=== PATIENT | female | born 1955 | race Caucasian/White ===

== ENCOUNTER 2018-10-17 16:32 | Emergency (ER) | payer MEDICARE, OTHER ==
[~2018-10-17] VITALS: Ht 152.4 cm; Wt 67.2 kg
[~2018-10-17 16:32] MED LIST: CEPH-443 PO; CIPR500T4 PO; HYDR-3980 PO; HYDR-4011 PO; IBUP-1542 PO; TAMS-14 PO
[2018-10-17 16:35] VITALS: Ht 152.4 cm; Wt 67.2 kg
[2018-10-17] MEDS ORDERED: HYDROCODONE/APAP (5/325) TAB PO ONE (17:00)
[2018-10-17] MEDS ORDERED: SOD CHLORIDE 0.9% 1,000 ML IV STA (18:10)
[2018-10-17] MEDS ORDERED: CEFTRIAXONE 1 GM/50 ML (PMX) 50 ML IVPB ONE (18:30)
[2018-10-17 18:49] VITALS: BP 138/80; PULSE 65; RESP 19
== END 2018-10-17 19:33 | disposition home or self-care (01) ==
LOC: FTE 16:32
DX: M54.5 Low back pain (principal); N20.0 Calculus of kidney
CPT/HCPCS: 72131; 76775; 80053; 81001; 85025; 85610; 85730; 87086; 96374; 99285; J0696; J7030

== ENCOUNTER 2018-10-18 11:37 | Emergency (ER) | payer MEDICARE, OTHER ==
[~2018-10-18] VITALS: Ht 165.1 cm; Wt 80.0 kg
[2018-10-18 11:50] VITALS: Ht 165.1 cm; Wt 80.0 kg
[2018-10-18] MEDS ORDERED: ONDANSETRON 4 MG INJ IV STA (11:51)
[2018-10-18] MEDS ORDERED: HYDROmorphONE 1 MG/ML SYG IV STA (11:51)
[2018-10-18 15:07] VITALS: BP 105/71; PULSE 80; RESP 17
== END 2018-10-18 15:10 | disposition home or self-care (01) ==
LOC: E/R 11:37
DX: N20.0 Calculus of kidney (principal)
CPT/HCPCS: 36415; 80048; 81001; 85025; 96374; 96375; 99284; J1170; J2405